=== PATIENT | female | born 2000 | race Two or more races ===

== ENCOUNTER 2021-05-16 14:46 | Emergency (ER) | payer SELFPAY ==
[~2021-05-16] VITALS: Ht 165.1 cm; Wt 80.0 kg
[2021-05-16 15:00] VITALS: BP 123/69
--- NOTE | 2021-05-16 15:24 | PHYS DOC ---
Past Medical History Past Surgical History: No Surgical History Smoking Status: Never Smoker Alcohol Use: None Drug Use: None General Adult EDM: Chief Complaint: SORE THROAT HPI: HPI: Patient is a 20 year old female who presents with shortness of breath, sore throat and cough. Patient states that her symptoms started within the past few days and have gotten worse since onset. She reports associated thoracic pain from breathing deeply and coughing. She has had bronchitis in the past, but denies history of asthma. Patient denies fever, chills, nasal congestion, sputum production, chest pain, palpitations. She states the first day of her last period was last month, and that there is a chance she is now. Review of Systems: Review of Systems: Constitutional: See HPI Eyes: Denies change in visual acuity or visual field deficits. HENT: See HPI Respiratory: See HPI Cardiovascular: See HPI GI: Denies abdominal pain, nausea, vomiting, bloody stools or diarrhea. : Denies dysuria or hematuria Musculoskeletal: Denies back pain or joint pain. Integument: Denies rash or other skin lesions. Neurologic: Denies headache, focal weakness or sensory changes. Heart Score: C/O Chest Pain: No Allergies: Allergies: Allergies Coded Allergies Type Severity Reaction Last Updated Verified No Known Drug Allergies 05/16/21 No Physical Exam: PE: Constitutional: Well developed, well nourished, no acute distress, non-toxic appearance. HENT: Normocephalic, atraumatic, bilateral external ears without deformity or discharge, oropharynx moist, no oral exudates, nose without deformity or discharge, bilateral nasal turbinates without erythema or swelling. Eyes: PERRLA, EOMI, conjunctiva normal, no discharge. Neck: Normal range of motion, no tenderness, supple, no stridor. Cardiovascular: Heart rate regular rhythm, no murmur. Lungs & Thorax: Expiratory wheezing appreciated in the right upper lung odell, otherwise clear to auscultation. Abdomen: Bowel sounds normal, soft, no tenderness, no masses, no pulsatile masses. Skin: Warm, dry, no erythema, no rash. Current Patient Data: Labs: Laboratory Tests Test 05/16/21 15:10 POC Urine HCG, Qualitative Hcg negative (Negative) Vital Signs: Vital Signs Date Time Temp Pulse Resp B/P (MAP) Pulse Ox O2 Delivery O2 Flow Rate FiO2 05/16/21 15:00 98.2 82 17 123/69 (87) 98 Room Air 98.2 Radiology/Procedures: Radiology/Procedures: PROCEDURE: PORTABLE CHEST 1V EXAM: Chest, single view. HISTORY: Shortness of breath. COMPARISON: None. FINDINGS: A frontal view of the chest is obtained. There is no infiltrate, pleural fusion or pneumothorax. The heart is normal in size. IMPRESSION: No acute pulmonary finding. Electronically signed by: Felicita Galvan MD (05/16/2021 3:49 PM) [facility] Course & Med Decision Making: Course & Med Decision Making Pertinent Labs and Imaging studies reviewed. (See chart for details) Patient is an otherwise healthy 20-year-old who presents with sore throat and cough. Work-up today will include chest x-ray as well as flu and COVID swabs. Flu swabs are negative and COVID swab test results would not be available until tomorrow. There are no obvious infiltrates on patient's chest x-ray. Patient will be provided with prescription for albuterol inhaler and instruction to use Mucinex to aid in decongestion. Patient understands and is agreeable to discharge plan. [employer] Disclaimer: [employer] Disclaimer: This electronic medical record was generated, in whole or in part, using a voice recognition dictation system. Departure Departure Impression: Primary Impression: Bronchitis with acute wheezing Disposition: 01 HOME / SELF CARE / HOMELESS Condition: STABLE Patient Instructions: Acute Bronchitis, [id number] Additional Instructions: Usa la inhalador dos veces cada 4-6 horas para la dificultad de respiracion. Mauri Mucinex (guaifenesin) cada 12 horas para la congestion del pecho. Si tiene fiebre, mauri Advil o Tylenol por la instrucciones en la caja. Regresa al departamento para sintomas nuevas o otras preocupadas. Scripts Guaifenesin (GUAIFENESIN) 400 Mg Tablet 1 TAB PO TID for cough for 5 Days, #15 TAB 0 Refills Prov: LAURA AGUILA 05/16/21 Albuterol Sulfate (Proair Hfa) 8.5 Gm Hfa.aer.ad 2 PUFF IH PRN Q4-6HRS PRN for wheezing, #1 INHALER 0 Refills Prov: LAURA AGUILA 05/16/21 LAURA AGUILA May 16, 2021 15:23
[2021-05-16 15:27] LABS: INFLUENZA A PATIENT NEGATIVE (NEGATIVE); INFLUENZA B PATIENT NEGATIVE (NEGATIVE)
--- NOTE | 2021-05-16 15:51 | RAD ---
EXAM: Chest, single view. HISTORY: Shortness of breath. COMPARISON: None. FINDINGS: A frontal view of the chest is obtained. There is no infiltrate, pleural fusion or pneumoth orax. The heart is normal in size. IMPRESSION: No acute pulmonary finding. Electronically signed by: Felicita Galvan MD (05/16/2021 3:49 PM) [facility]
[2021-05-16] MEDS ORDERED: GUAI400T78 PO (16:01)
[2021-05-16] MEDS ORDERED: ALBU2.5V8 IH (16:01)
--- NOTE | 2021-05-18 12:05 | NUR ---
IP: Attempted to contact pt concerning covid results. Male individual who answered the phone could not tell me if he knew the pt. Will try call again later.
== END 2021-05-16 16:23 | disposition home or self-care (01) ==
LOC: ER 14:46
DX: J40 Bronchitis, not specified as acute or chronic (principal); R06.2 Wheezing; Z20.822 Contact with and (suspected) exposure to COVID-19
CPT/HCPCS: 71045; 81025; 87804; 99284; U0003; U0005

== ENCOUNTER 2021-06-15 11:46 | Emergency (ER) | payer SELFPAY ==
[~2021-06-15] VITALS: Ht 160 cm; Wt 78.0 kg
[~2021-06-15 11:46] MED LIST: ALBU2.5V8 IH; GUAI400T78 PO
[2021-06-15 12:21] VITALS: BP 103/48
[2021-06-15 12:54] LABS: BILIRUBIN,URINE NEGATIVE (NEG); CLARITY,URINE CLOUDY; COLOR,URINE YELLOW; NITRITE,URINE NEGATIVE (NEG); PROTEIN,URINE NEGATIVE (NEG-TRACE); UROBILINOGEN,URINE 0.2 mg/dL (0.2 mg/dL)
[2021-06-15 13:03] LABS: AMORPHOUS SEDIMENT,UR PRESENT /HPF; BACTERIA,URINE 0 /HPF (0-FEW); RBC,URINE 0 /HPF (0-2); WBC,URINE 0 /HPF (0-4)
[2021-06-15 13:46] LABS: U PREG PATIENT NEGATIVE (NEG)
== END 2021-06-15 15:28 | disposition left against medical advice (07) ==
LOC: ER 11:46
DX: R10.30 Lower abdominal pain, unspecified (principal); Z53.21 Procedure and treatment not carried out due to patient leaving prior to being seen by health care provider
CPT/HCPCS: 81001; 81025